=== PATIENT | female | born 1940 | race American Indian/Alaskan Native ===

== ENCOUNTER 2018-04-06 10:32 | Outpatient (CLI) | payer MEDICARE ==
--- NOTE | 2018-04-06 13:00 | XRay Report ---
XRAY CHEST TWO VIEWS: 04/06/18 10:32:00 CLINICAL: Productive cough. COMPARISON: 01/03/13, 12/20/12, 11/24/11 and 11/05/11 FINDINGS: Right diaphragmatic eventration is increased compared to prior exams. No airspace disease or pleural effusion. Mild left lower lobe linear scar. Mild blunting of the costophrenic angles. Normal heart and pulmonary vessels. Aortic tortuosity and elongation.The bones and soft tissues are unremarkable. IMPRESSION: No pneumonia or CHF.
== END 2018-04-06 10:33 | disposition home or self-care (01) ==
LOC: SPVIMAG 10:32
PROVIDERS: ATTEND Internal Medicine
DX: J98.4 Other disorders of lung (principal); R05 Cough
CPT/HCPCS: 71046